=== PATIENT | female | born 1985 | race Caucasian/White ===

== ENCOUNTER 2016-05-19 02:53 | Emergency (ER) | payer BC ==
[~2016-05-19] VITALS: Ht 170.2 cm; Wt 77.3 kg
[~2016-05-19 02:53] MED LIST: BIRTH CONTROL PILLS; LORTAB 5/500 501 TAB PO; NO HOME MEDICATIONS; NORCO 325 MG-7.1 TAB PO
[2016-05-19 03:00] VITALS: TEMP 97.5
[2016-05-19 04:11] LABS: BASO # 0.1 (0.0-0.2); BASO % 0.5 % (0.0-2.0); EOS # 0.5 (0.0-0.7); EOS % 4.5 % (0-4.0); GRAN # 5.2 (1.4-6.5); GRAN % 51.7 % (42.2-75.2); HEMATOCRIT 40.1 % (37.0-47.0); HEMOGLOBIN 13.5 g/dl (12.5-16.0); LYMPH # 3.4 (1.2-3.4); LYMPH % 33.7 % (20.0-51.0); MEAN CELL VOLUME 97 fl (80.0-100.0); MEAN CORPUSCULAR HEMOGLOBIN 33 pg (27.0-31.0); MEAN CORPUSCULAR HGB CONC 34 g/dl (33.0-37.0); MEAN PLATELET VOLUME 9.7 fl (7.4-10.4); MONO # 0.9 (0.1-0.6); PLATELET COUNT 211 K/mm3 (130-400); RED BLOOD COUNT 4.15 M/mm3 (4.10-5.30)
[2016-05-19 04:20] LABS: PH 5 (5-8); URINE APPEARANCE Hazy; URINE BACTERIA Rare /hpf; URINE BILIRUBIN Negative (NEGATIVE); URINE BLOOD Negative (NEGATIVE); URINE COLOR Yellow; URINE GLUCOSE Negative (NEGATIVE); URINE KETONE Negative (NEGATIVE); URINE UROBILINOGEN Negative (NEGATIVE)
[2016-05-19 04:22] LABS: CALCIUM 9.7 mg/dL (8.4-10.2); CREATININE, serum 0.86 mg/dL (0.52-1.25); POTASSIUM 4.4 mmol/L (3.4-5.0)
[2016-05-19 05:04] LABS: URINE RBC 0-2 /hpf; URINE WBC 0-2 /hpf
[2016-05-19] MEDS ORDERED: FLOMAX 0.40.4 MG/CAP PO (05:15)
[2016-05-19] MEDS ORDERED: NORCO 325 MG-51 TAB PO (05:15)
[2016-05-19] MEDS ORDERED: ZOFRAN8 MG PO (05:15)
[2016-05-19] MEDS ORDERED: ULTRAM 50MG TAB50 MG PO (05:15)
[2016-05-19 05:30] VITALS: BP 129/77; PULSE 85
== END 2016-05-19 05:33 | disposition home or self-care (01) ==
LOC: COL.ER 02:53
PROVIDERS: Emergency Medicine
DX: R10.32 Left lower quadrant pain (principal); Z87.442 Personal history of urinary calculi
CPT/HCPCS: J1885; J2405; J7030